=== PATIENT | female | born 2000 | race American Indian/Alaskan Native ===

== ENCOUNTER 2020-12-31 21:15 | Inpatient (IN) | payer OTHER ==
[2020-12-31] MEDS ORDERED: AMPICILLIN/NS 2 GM/100 ML 2 GM/100 ML BAG IV ONE ×2 (22:20→22:26)
[2020-12-31] MEDS ORDERED: LACTATED RINGERS 1,000 ML ONE (22:20)
[2020-12-31] MEDS ORDERED: CARBOPROST TROMETHAMINE 250 MCG/1 ML INJ IM PRN (22:26)
[2020-12-31] MEDS ORDERED: METHYLERGONOVINE MALEATE 0.2 MG/ML VIAL IM PRN (22:26)
[2020-12-31] MEDS ORDERED: BUTORPHANOL 2 MG/1 ML INJ IV PRN (22:26)
[2020-12-31] MEDS ORDERED: TERBUTALINE 1 MG/1 ML INJ SUB-Q PRN (22:26)
[2020-12-31] MEDS ORDERED: LOPERAMIDE 2 MG CAP PO PRN (22:26)
[2020-12-31] MEDS ORDERED: miSOPROStol 200 MCG TAB PR PRN (22:26)
[2020-12-31] MEDS ORDERED: ePHEDrine SULFATE 50 MG/1 ML INJ IV PRN (22:26)
[2020-12-31] MEDS ORDERED: fentaNYL 100 MCG/2 ML INJ IV PRN (22:26)
[2020-12-31] MEDS ORDERED: LIDOCAINE (2%) 20 MG/1 ML VIAL 20 ML MDV INFILTRATI ONE (22:26)
[2020-12-31] MEDS ORDERED: OXYTOCIN 10 UNIT/1 ML INJ IM PRN (22:26)
[2020-12-31] MEDS ORDERED: ONDANSETRON 4 MG/2 ML INJ IV PRN ×2 (22:26→23:31)
[2020-12-31] MEDS ORDERED: MINERAL OIL 30 ML ORAL LIQD PO PRN (22:26)
[2020-12-31] MEDS ORDERED: ACETAMINOPHEN 325 MG TAB PO PRN (22:26)
[2020-12-31] MEDS ORDERED: LACTATED RINGERS 1,000 ML IV SCH (22:30)
--- NOTE | 2020-12-31 22:34 | History and Physical Report ---
History of Present Illness Date of examination: 12/31/20 Date of admission: 12/31/2020 Chief complaint: Contractions and leaking of water History of present illness: 20 year old presents to L&D with complaint of contractions and leaking of water. Patient states she has been kevin at home for 3 days. States she started leaking water at 5:00 PM today. States she has not had any care during the . States she was trying to have a home at home and says she has been pushing at home for several hours. Patient states her EDC is based on an early US she had done at the aid center; EDC 12/28/20. Denies any complications during the except for no care. Past History Past Medical History: asthma, other (obesity) Past Surgical History: other (surgery on left leg as a baby (states her father broke her leg)) [employer] History: denies: chlamydia, gonorrhea, hepatitis B, hepatitis C, herpes, HIV, syphilis, trichomonas Family/Genetic History: diabetes Social history: single, lives with family, full code. denies: smoking, alcohol abuse, prescription drug abuse, IV drug use - Obstetrical History Expected Date of Delivery: 12/28/20 Actual Gestation: 40 Week(s) 3 Day(s) : 1 Para: 0 Hx # Term Pregnancies: 0 Number of Pregnancies: 0 Spontaneous Abortions: 0 Induced : 0 Number of Living Children: 0 Medications and Allergies Allergies Allergy/AdvReac Type Severity Reaction Status Date / Time peanut Allergy Anaphylaxis Verified 12/31/20 22:09 Home Medications Medication Instructions Recorded Confirmed Last Taken Type No Known Home Medications [No 12/31/20 12/31/20 Unknown History Reported Home Medications] Active Meds: Active Medications Acetaminophen (Acetaminophen 325 Mg Tab) 650 mg PO Q4H PRN PRN Reason: Pain, Mild (1-3) Butorphanol Tartrate (Butorphanol 2 Mg/1 Ml Inj) 1 mg IV Q2H PRN PRN Reason: Pain, Moderate(4-6) LABOR PAIN Carboprost Tromethamine (Carboprost Tromethamine 250 Mcg/1 Ml Inj) 250 mcg IM ONCE PRN PRN Reason: Uterine Bleeding Ephedrine Sulfate (Ephedrine Sulfate 50 Mg/1 Ml Inj) 10 mg IV Q2M PRN PRN Reason: Hypotension Fentanyl (Fentanyl 100 Mcg/2 Ml Inj) 100 mcg IV Q2H PRN PRN Reason: Pain,Severe (7-10) LABOR PAIN Oxytocin/Sodium Chloride (Pitocin/Ns 30 Unit/500ml) 30 units in 500 mls @ 2 mls/hr IV TITR [facility]; Protocol Lactated Ringer's (Lactated Ringers) 1,000 mls @ 125 mls/hr IV DIRECT [facility] Oxytocin/Sodium Chloride (Pitocin/Ns 30 Unit/500ml) 30 units in 500 mls @ 40 mls/hr IV TITR [facility]; Protocol Ampicillin Sodium (Ampicillin/Ns 2 Gm/100 Ml) 2 gm in 100 mls @ 100 mls/hr IV ONCE ONE; Protocol Stop: 12/31/20 23:25 Ampicillin Sodium (Ampicillin/Ns 1 Gm/50 Ml) 1 gm in 50 mls @ 100 mls/hr IV Q4H [facility]; Protocol Lidocaine (Lidocaine (2%) 20 Mg/1 Ml Vial 20 Ml Mdv) 20 ml INFILTRATI ONCE ONE Stop: 12/31/20 22:27 Loperamide HCl (Loperamide 2 Mg Cap) 2 mg PO ONCE PRN PRN Reason: give with Hemabate Methylergonovine Maleate (Methylergonovine Maleate 0.2 Mg/Ml Vial) 0.2 mg IM ONCE PRN PRN Reason: Uterine Bleeding Mineral Oil (Mineral Oil 30 Ml Oral Liqd) 30 ml PO QHS PRN PRN Reason: Constipation Misoprostol (Misoprostol 200 Mcg Tab) 800 mcg NE ONCE PRN PRN Reason: Uterine Bleeding Ondansetron HCl (Ondansetron 4 Mg/2 Ml Inj) 4 mg IV Q8H PRN PRN Reason: Nausea And Vomiting Oxytocin (Oxytocin 10 Unit/1 Ml Inj) 10 unit IM ONCE PRN PRN Reason: Uterine Bleeding Terbutaline Sulfate (Terbutaline 1 Mg/1 Ml Inj) 0.25 mg SUB-Q ONCE PRN PRN Reason: Hyperstimulation/Hypertonicity Review of Systems All systems: negative (contractions and leaking of water) - Physical Exam Abdomen: Positive: normal appearance, soft. Negative: distention, tenderness, guarding, rigidity Genitourinary (Female): Positive: normal external genitalia, normal perenium. Negative: perineal/vulvar lesions Vagina: Positive: normal moisture Uterus: Positive: enlarged. Negative: tender Anus/Rectum: Positive: normal perianal skin - Obstetrical FHR: category 2 Uterine Contraction Monitor Mode: External Cervical Dilatation: 8 Cervical Effacement Percentage: 80 station: -2 Uterine Contraction Pattern: Regular Uterine Contraction Intensity: Moderate Results All other labs normal. Assessment and Plan A: at 40 weeks, 3 days gestation. Active labor. GBS unknown. No care. P: Admit. EFM. GBS prophylaxis. Anticipate vaginal . Draw labs. US.
[2020-12-31] MEDS ORDERED: OXYTOCIN DRIP 30 UNITS/500 ML BAG IV SCH ×2 (23:00)
[2020-12-31] MEDS ORDERED: BENZOCAINE/MENTHOL 20/0.5% TOP SPRAY 56 GM TP PRN (23:31)
[2020-12-31] MEDS ORDERED: MAGNESIUM HYDROXIDE (MOM) ORAL LIQD UDC PO PRN (23:31)
[2020-12-31] MEDS ORDERED: LANOLIN/ZINC/DIMETHICONE (LANSINOH) 7 GM TP PRN ×2 (23:31)
[2020-12-31] MEDS ORDERED: WITCH HAZEL/ GLYCERIN PAD TP PRN (23:31)
[2020-12-31 23:39] LABS: Hematocrit 36.2 % (30.3-42.9); Hemoglobin 11.7 gm/dl (10.1-14.3); Mean Corpuscular HGB Conc 32 % (30-34); Mean Corpuscular Volume 78 fl (79-97); Platelet Count 307 K/mm3 (140-440); Red Blood Count 4.64 M/mm3 (3.65-5.03); Red Cell Distribution Width 17.6 % (13.2-15.2)
--- NOTE | 2020-12-31 23:41 | Procedure Note ---
OB Delivery Note - Delivery Date of Delivery: 12/31/20 Surgeon: SHAI FARRELL Estimated blood loss: other (250 cc) - Vaginal Delivery presentation: vertex Delivery position: OA Intrapartum events: no care Delivery induction: none Delivery monitor: external FHT, external uterine Route of delivery: Delivery placenta: spontaneous Delivery cord: 3 umbilical vessels Episiotomy: none Delivery laceration: 1st degree Delivery comments: Spontaneous vaginal delivery at 23:07 of liveborn male infant weighing 6 lb. 9 oz. over intact perineum with apgars of 8/9. No nuchal cord. was atraumatic. Baby placed skin to skin with mom immediately after . Baby bulb suctioned and dried. Spontaneous cry and respirations. 3 vessel cord double clamped and cut and baby taken to radiant warmer for further suctioning. Cord blood obtained. Spontaneous delivery of intact placenta and membranes at 23:13. EBL 250 cc. Pitocin to IV fluids after delivery of placenta. Fundus firm and midline at 2 FB below umbilicus. Vaginal sweep negative. Superficial first degree left periurethral laceration, not bleeding and not repaired per patient request. No other lacerations noted. Sponge count correct. Mother and baby stable in birthing room.
[2021-01-01 00:03] LABS: Alanine Aminotransferase 14 units/L (7-56); Albumin 3.3 g/dL (3.9-5); Blood Urea Nitrogen 5 mg/dL (7-17); Calcium 8.8 mg/dL (8.4-10.2); Hemolysis Index 1
[2021-01-01 00:04] LABS: BUN/Creatinine Ratio 7
[2021-01-01 00:18] LABS: Hepatitis C Virus Antibody Non-Reactive (NonReactive)
[2021-01-01] MEDS: HYDROcodone/ACETAMINOPHEN 5-325 MG TAB PO PRN ×2 (00:49→11:25)
[2021-01-01 01:12] LABS: Uric Acid 7.1 mg/dL (3.5-7.6)
[2021-01-01] MEDS ORDERED: miSOPROStol 200 MCG TAB VG ONE (02:05)
[2021-01-01] MEDS ORDERED: METHYLERGONOVINE MALEATE 0.2 MG/ML VIAL IM ONE ×2 (02:33→15:34)
[2021-01-01] MEDS ORDERED: SILVER NITRATE APPLICATOR 1 EA TP ONE ×3 (02:51→10:00)
[2021-01-01] MEDS ORDERED: AMPICILLIN/NS 1 GM/50 ML 1 GM/50 ML BAG IV SCH (03:00)
--- NOTE | 2021-01-01 03:20 | Event Note ---
Date: 01/01/21 Uterus became boggy once patient went upstairs to Mother Baby unit. Bladder was full and fundus deviated to right of umbilicus; patient voided more than 400 cc and fundus returned to midline at 1 FB below umbilicus. Fundal massage, rectal cytotec, and IM Methergine given. US ordered to check for accessory lobe. PO Methergine series ordered. At delivery patient had refused suturing of small periurethral laceration. Small amount of bleeding now coming from laceration; silver nitrate applied for hemostasis and ice pack applied.
--- NOTE | 2021-01-01 03:51 | Ultrasound Report ---
ULTRASOUND PELVIS INDICATION: Check for accessory lobe of placenta. TECHNIQUE: Transabdominal. Duplex Color Doppler used: Yes. COMPARISON: None available FINDINGS: Uterus: Present. Endometrial complex: Thickened measuring 3.2 cm. The stripe is heterogeneous but demonstrates no disc rete nodule and demonstrate no increased flow. The uterus is mildly heterogeneous as well. Mass lesions: None. Additional findings: None. Right Ovary --nonvisualized. Left Ovary--nonvisualized. Urinary Bladder: Normal. Free Fluid: None. Additional Findings: None. IMPRESSION: 1. Thickened, heterogeneous endometrial stripe. 2. Ovaries nonvisualized. No adnexal abnormality. Signer Name: Bret Mei MD Signed: 01/01/2021 3:47 AM Workstation Name: [id number]
[2021-01-01 05:50] LABS: Bacteria,Urine 4+ /HPF (Negative); Bilirubin,Urine NEG (Negative); Blood,Urine MOD (Negative); Color,Urine Red (Yellow); Mucus,Urine FEW /HPF; RBC,Urine > 182.0 /HPF (0.0-6.0); Urobilinogen,Urine < 2.0 mg/dL (<2.0)
[2021-01-01] MEDS ORDERED: MINERAL OIL 30 ML ORAL LIQD PO PRN (06:40)
[2021-01-01] MEDS ORDERED: OXYTOCIN DRIP 30 UNITS/500 ML BAG IV SCH (06:42)
[2021-01-01] MEDS ORDERED: cefTRIAXone/NS 1 GM/50 ML 1 GM/50 ML BAG IV SCH (07:00)
[2021-01-01] MEDS ORDERED: miSOPROStol 200 MCG TAB PO ONE (08:37)
[2021-01-01] MEDS ORDERED: METHYLERGONOVINE MALEATE 0.2 MG/ML VIAL IM NR (08:39)
[2021-01-01] MEDS ORDERED: FERROUS SULFATE 325 MG TAB PO SCH (10:00)
[2021-01-01 10:04] LABS: Hematocrit 29.8 % (30.3-42.9); Hemoglobin 9.6 gm/dl (10.1-14.3)
--- NOTE | 2021-01-01 10:19 | Event Note ---
Date: 01/01/21 Nurse states patient's uterus keeps getting boggy and has changed several pads soaked with blood and clots in the past 2 hours. Nurse has called Dr. Contreras and has given patient another dose of IM Methergine and has given PO cytotec. Speculum exam performed; no vaginal or cervical lacerations noted. Large amount of blood seen on pad. Patient lost between 200-250 cc of blood at delivery and has probably lost another 500 cc since then. Stat H&H pending. IM Pitocin ordered. Ampicillin and gentamicin ordered. Schuler ordered. Informed Dr. Patricia gray of all of the above. Care of patient turned over to Amy MAHAN and Dr. Contreras.
[2021-01-01] MEDS ORDERED: LOPERAMIDE 2 MG CAP PO SCH (10:30)
[2021-01-01] MEDS ORDERED: OXYTOCIN 10 UNIT/1 ML INJ IM SCH (10:30)
--- NOTE | 2021-01-01 11:01 | Progress Note ---
Assessment and Plan A: S/P Delayed PPH Asymptomatic anemia UTI P: Continue routine pp care Fe prescribed Urine cul Cont abt D/C home tomm if stable Consulted with Dr Contreras Subjective - Subjective Date of service: 01/01/21 Principal diagnosis: s/p Patient reports: appetite normal, voiding normally, pain well controlled, ambulating normally [place]: doing well, bottle feeding Objective - Vital Signs Latest vital signs: Vital Signs Temp Pulse Resp BP BP Pulse Ox 01/01/21 08:26 99.3 F 88 20 121/55 98 01/01/21 05:43 98.4 F 67 18 116/67 98 01/01/21 01:25 98.4 F 69 18 113/53 99 01/01/21 00:15 102 H 120/64 99 01/01/21 00:10 92 H 120/64 99 01/01/21 00:05 75 98 01/01/21 00:00 93 H 123/58 98 12/31/20 23:55 88 18 122/65 99 12/31/20 23:52 93 H 123/56 12/31/20 23:50 91 H 98 12/31/20 23:45 98 H 98 12/31/20 23:40 93 H 18 123/56 98 12/31/20 23:35 100 H 99 12/31/20 23:32 93 H 141/66 12/31/20 23:30 106 H 169/93 95 12/31/20 23:25 93 H 22 141/66 95 12/31/20 23:20 103 H 100 12/31/20 23:15 105 H 120/57 99 12/31/20 23:10 98.6 F 107 H 18 120/57 99 12/31/20 23:05 116 H 99 12/31/20 23:00 97 H 99 12/31/20 22:55 75 100 12/31/20 22:51 77 146/65 12/31/20 22:50 81 97 12/31/20 22:45 90 97 12/31/20 22:44 78 93 12/31/20 22:40 86 98 12/31/20 22:35 71 98 12/31/20 22:10 98.6 F 84 22 146/65 99 Intake and Output 12/31/20 01/01/21 01/01/21 22:59 06:59 14:59 Intake Total 120 Output Total 1000 Balance -1000 120 Intake: Oral 120 Output: Urine 1000 Void 1000 Other: Total, Intake Amount 120 Total, Output Amount 100 # Voids Void 1 1 Weight 210 lb Estimated Blood Loss 250 - Exam Breasts: Present: normal Abdomen: Present: normal appearance, soft, normal bowel sounds Vulva: both: normal Uterus: Present: normal, firm, fundal height below umbilicus Extremities: Present: normal Incision: Present: normal, intact - Labs Labs: Abnormal lab results 12/31/20 12/31/20 01/01/21 Range/Units 22:05 22:05 09:40 WBC 12.8 H (4.5-11.0) K/mm3 Hgb 9.6 L (10.1-14.3) gm/dl Hct 29.8 L D (30.3-42.9) % MCV 78 L (79-97) fl MCH 25 L (28-32) pg RDW 17.6 H (13.2-15.2) % Potassium 3.0 L (3.6-5.0) mmol/L Carbon Dioxide 14 L (22-30) mmol/L BUN 5 L (7-17) mg/dL Alkaline Phosphatase 178 H (35-129) units/L Lactate Dehydrogenase 247 H (91-180) units/L Albumin 3.3 L (3.9-5) g/dL Urine WBC (Auto) (0.0-6.0) /HPF 01/01/21 Range/Units Unknown WBC (4.5-11.0) K/mm3 Hgb (10.1-14.3) gm/dl Hct (30.3-42.9) % MCV (79-97) fl MCH (28-32) pg RDW (13.2-15.2) % Potassium (3.6-5.0) mmol/L Carbon Dioxide (22-30) mmol/L BUN (7-17) mg/dL Alkaline Phosphatase (35-129) units/L Lactate Dehydrogenase (91-180) units/L Albumin (3.9-5) g/dL Urine WBC (Auto) 159.0 H (0.0-6.0) /HPF
[2021-01-01] MEDS: PRENATAL VIT27-FE FUMARATE-FOLIC ACID VIT TAB PO SCH (11:24)
[2021-01-01] MEDS ORDERED: GENTAMICIN 100 MG in SODIUM CHLORIDE 0.9% 100 ML IV SCH (12:00)
[2021-01-01] MEDS: METHYLERGONOVINE 0.2 MG TABLET PO SCH ×2 (12:47→19:33)
[2021-01-01 14:40] LABS: Hematocrit 28.3 % (30.3-42.9)
[2021-01-01] MEDS ORDERED: CARBOPROST TROMETHAMINE 250 MCG/1 ML INJ IM ONE (15:34)
--- NOTE | 2021-01-01 15:41 | Event Note ---
Date: 01/01/21 This is a COVID POSITIVE PATIENT: I was called to the room for persistent delayed PP hemorrhage. Patient has since delivery and total EBL 1000ml. since delivery. she admits to laboring at home for over two days before she presented to the hospital. at 23:07 12/31/20: EBL @ delivery noted to be 250ml. Serial H/H as follows: 12/31/20: @ 22:05: 11/7/36.2 01/01/21:@ 09:40: 9.6/29.8 01/01/21: @ 13:46: 9.0/28.3 Medical intervention to date has included the following: Cytotec: Per Vagina:800mcg @ 02:37 Per Mouth(buccal): 200mcg @ 10:22 Oxytocin: Per IV: 50 units in 500ml running at 40ml/min Methergine: 0.2mg given IM @ 02:38 and 15:34 0.2mg given PO @ 11:00 plan for PO cytotec 0.2mg PO TIDx3 days(she has received the first dose of this series) VITALS:BP 127/56, P121 Temp 98.4 She is AAox3 at bedside. Vitals: Patient is warm to touch. Perineum: ~200ml on jessica-dad, no active bleeding Fundus firm Bimanual reveals atonic lower uterine segment and cervix firm fundus no blood or clot expressed with bimanual massage minimal blood noted from left jessica-urethral laceration. Plan: I suspect lower uterine segment atony. The fundus is firm with no active bleeding or clots at bedside. The goal is for resolution of the lower segment atony. At this time would continue with medical management.I have ordered Methergine 0.2mg IM and Hemabate to be given stat. She on on Abx for suspected underlying endometritis. I have ordered her to receive a send IV line immediately(her second line blew earlier) I have ordered her to receive two units of PRBCs stat. The next step if this patient does not respond would be EUA and D&C in the OR with vaginal packing under sedation. With no active hemorrhage I feel it reasonable to continue with medical management at this time. Keysha Contreras MD
[2021-01-01 15:52] LABS: Amphetamine Screen,Urine Negative; Benzodiazepines Screen,Urine Negative; Cannabinoid Screen,Urine Negative; Cocaine Screen,Urine Negative; Methadone Screen,Urine Negative; Opiate Screen,Urine Negative
[2021-01-01] MEDS ORDERED: AMMONIA INHALANT IH ONE (18:20)
[2021-01-01] MEDS ORDERED: SODIUM CHLORIDE 0.9% 500 ML 500 ML IV NR (20:04)
[2021-01-01] MEDS ORDERED: LOPERAMIDE 2 MG CAP PO ONE (21:16)
[2021-01-01] MEDS ORDERED: ACETAMINOPHEN 325 MG TAB PO ONE (22:08)
[2021-01-01] MEDS ORDERED: diphenhydrAMINE 25 MG CAP PO ONE (22:09)
[2021-01-01] MEDS: IBUPROFEN 600 MG TAB PO SCH (22:24)
[2021-01-01] MEDS: FERROUS SULFATE 325 MG TAB PO SCH (22:25)
[2021-01-01] MEDS: AMPICILLIN/NS 2 GM/100 ML 2 GM/100 ML BAG IV SCH (23:39)
[2021-01-02] MEDS: GENTAMICIN/NS 100 MG/100 ML 100 MG/100 ML BAG IV SCH ×3 (00:52→20:06)
[2021-01-02] MEDS: METHYLERGONOVINE 0.2 MG TABLET PO SCH ×3 (03:35→20:04)
[2021-01-02] MEDS: IBUPROFEN 600 MG TAB PO SCH ×4 (06:02→23:50)
[2021-01-02] MEDS: AMPICILLIN/NS 2 GM/100 ML 2 GM/100 ML BAG IV SCH ×4 (06:03→23:49)
[2021-01-02 09:05] LABS: Hematocrit 28.6 % (30.3-42.9); Hemoglobin 9.1 gm/dl (10.1-14.3)
--- NOTE | 2021-01-02 10:02 | Progress Note ---
Assessment and Plan PPD # 2 Home delivery A: S/P S/P delayed PPH with lower uterine seg atony Endometritis UTI Asymptomatic anemia Covid pos No care P: Continue routine pp care Repeat H&H in 12 hrs D/C brewer Continue ABT D/C home within 24-48 hrs if cleared by MD Dr Contreras consulted Subjective - Subjective Date of service: 01/02/21 Principal diagnosis: s/p Patient reports: appetite normal, voiding normally, pain well controlled, flatus, other (rubra lochia wnl ) : doing well, bottle feeding (Adq amts cl yell urine in BSD bag) Objective - Vital Signs Latest vital signs: Vital Signs Temp Pulse Resp BP BP Pulse Ox Pulse Ox 01/02/21 08:30 98.7 F 96 H 20 108/53 100 01/02/21 08:00 100 01/02/21 03:10 98.1 F 86 18 113/56 98 01/02/21 02:40 98.0 F 78 18 96/51 97 01/02/21 02:10 98.1 F 99 H 18 106/74 98 01/02/21 01:40 98.1 F 88 18 115/52 97 01/02/21 01:25 98.2 F 100 H 18 108/56 99 01/02/21 00:55 98.2 F 100 H 18 115/57 98 01/02/21 00:25 98.4 F 105 H 20 108/58 98 01/01/21 23:55 98.6 F 105 H 20 109/57 109/57 98 01/01/21 23:25 98.4 F 102 H 18 99/65 98 01/01/21 23:10 98.4 F 99 H 18 103/61 01/01/21 22:20 99.2 F 120 H 20 102/53 96 Intake and Output 01/01/21 01/02/21 01/02/21 22:59 06:59 14:59 Intake Total 20 100 Output Total 600 Balance 20 -500 Intake: IV 20 100 AMPICILLIN/NS 2 GM/100 ML 100 2 gm In 100 ml @ 100 mls /hr IV Q6H [facility] Rx#: [id number] Right Forearm 20 Blood Product 0 Leukoreduced Red Blood 0 Cells Unit [id number] Leukoreduced Red Blood 0 Cells Unit [id number] Output: Urine 600 Indwelling Catheter 600 Other: Total, Output Amount 600 - Exam Breasts: Present: normal Abdomen: Present: normal appearance, soft, normal bowel sounds Vulva: both: normal Uterus: Present: normal, firm, fundal height below umbilicus Extremities: Present: normal - Labs Labs: Abnormal lab results 01/01/21 01/01/21 01/01/21 Range/Units 09:40 09:40 13:46 Hgb 9.6 L 9.0 L (10.1-14.3) gm/dl Hct 29.8 L D 28.3 L (30.3-42.9) % Coronavirus (PCR) (Negative) Crossmatch See Detail 01/01/21 01/02/21 Range/Units Unknown 08:21 Hgb 9.1 L (10.1-14.3) gm/dl Hct 28.6 L (30.3-42.9) % Coronavirus (PCR) Positive A (Negative) Crossmatch
[2021-01-02] MEDS: FAMOTIDINE 20 MG/2 ML INJ IV SCH (11:13)
[2021-01-02] MEDS: PRENATAL VIT27-FE FUMARATE-FOLIC ACID VIT TAB PO SCH (11:15)
[2021-01-02] MEDS: FERROUS SULFATE 325 MG TAB PO SCH ×2 (11:15→23:49)
[2021-01-02] MEDS ORDERED: SODIUM CHLORIDE 0.9% 500 ML 500 ML ONE (22:47)
[2021-01-03 01:14] LABS: Hematocrit 26.8 % (30.3-42.9); Hemoglobin 8.9 gm/dl (10.1-14.3)
[2021-01-03] MEDS: GENTAMICIN/NS 100 MG/100 ML 100 MG/100 ML BAG IV SCH (04:19)
[2021-01-03] MEDS: METHYLERGONOVINE 0.2 MG TABLET PO SCH (04:20)
[2021-01-03] MEDS: IBUPROFEN 600 MG TAB PO SCH ×2 (06:16→12:00)
[2021-01-03] MEDS: AMPICILLIN/NS 2 GM/100 ML 2 GM/100 ML BAG IV SCH (06:17)
[2021-01-03] MEDS: FAMOTIDINE 20 MG/2 ML INJ IV SCH (08:15)
[2021-01-03] MEDS: FERROUS SULFATE 325 MG TAB PO SCH (08:16)
[2021-01-03] MEDS: PRENATAL VIT27-FE FUMARATE-FOLIC ACID VIT TAB PO SCH (08:16)
[2021-01-03] MEDS ORDERED: SODIUM CHLORIDE 0.9% 1000 ML 1,000 ML ONE (08:35)
[2021-01-03 09:57] VITALS: BP 116/58
--- NOTE | 2021-01-03 10:29 | Progress Note ---
Assessment and Plan A: S/P with delayed PPH p: D/C home per Dr Contreras Subjective - Subjective Date of service: 01/03/21 Principal diagnosis: s/p Patient reports: appetite normal, voiding normally, pain well controlled, flatus, ambulating normally : doing well, bottle feeding Objective - Vital Signs Latest vital signs: Vital Signs Temp Pulse Resp BP BP Pulse Ox Pulse Ox 01/03/21 08:00 97.7 F 84 20 116/58 100 100 01/03/21 04:42 98.0 F 92 H 20 116/69 97 01/02/21 20:05 98.1 F 97 H 20 107/49 99 100 01/02/21 17:28 20 01/02/21 17:20 98.3 F 87 20 102/58 97 Intake and Output 01/02/21 01/03/21 01/03/21 22:59 06:59 14:59 Intake Total 200 100 Balance 200 100 Intake: IV 200 100 AMPICILLIN/NS 2 GM/100 ML 100 100 2 gm In 100 ml @ 100 mls /hr IV Q6H [facility] Rx#: [id number] GENTAMICIN/NS 100 MG/100 100 ML 100 mg In 100 ml @ 100 mls/hr IV Q8H [facility] Rx#: [id number] Other: # Voids Void 1 - Exam Breasts: Present: normal Abdomen: Present: normal appearance, soft, normal bowel sounds Vulva: both: normal Uterus: Present: normal, firm, fundal height below umbilicus Extremities: Present: normal Incision: Present: normal, intact - Labs Labs: Abnormal lab results 01/01/21 01/03/21 Range/Units 09:40 00:20 Hgb 8.9 L (10.1-14.3) gm/dl Hct 26.8 L (30.3-42.9) % Crossmatch See Detail
--- NOTE | 2021-01-03 10:35 | Discharge Summary ---
Providers - Providers Date of Admission: 12/31/20 22:26 Date of discharge: 01/03/21 Attending physician: LYUBOV GREEN MD 12/31/20 23:33 Consult to Case Management [CONS] Routine Services Needed at Discharge: Supervisor Assembly Room Notified:: no Additional Physician Instructions: No care Primary care physician: [facility] Hospitalization Reason for admission: IUP at term Delivery: Episiotomy: none Laceration: none Other procedures: other (Received PRBCs and abt r/t delayed PPH, UTI, and endometritis) complications: pelvic infection, transfusion, UTI, uterine atony (delayed PPH), other Discharge diagnosis: IUP at term delivered baby: male Hospital course: Pt voiced an attempted home delivery. She arrived to [facility] in active labor and had a . Afterwards she suffered from delayed PPH, uti, and endometritis which was resolved with Methergine, Pitocin, Cytotec, PRBCs, abt and pelvic rest. See H&P, delivery summary, and pp notes. Condition at discharge: Stable Disposition: 01 HOME / SELF CARE / HOMELESS Plan - Discharge Medications Prescriptions: Ferrous Sulfate [Feosol 325 MG tab] 325 mg PO BID #120 tablet Ibuprofen [Motrin 600 MG tab] 600 mg PO Q6HR PRN #30 tablet PRN Reason: Menstrual Cramps - Provider Discharge Summary Activity: routine, no sex for 6 weeks, no heavy lifting 4 weeks, no strenuous exercise Diet: routine Instructions: routine Additional instructions: [] Smoking cessation referral if applicable(refer to patient education folder for contact #) [] Refer to [facility] Booklet Call your doctor immediately for: * Fever > 100.5 * Heavy vaginal bleeding ( >1 pad per hour) * Severe persistent headache * Shortness of breath * Reddened, hot, painful area to leg or breast * Drainage or odor from incision. * Keep incision clean and dry at all times and follow doctor's instructions regarding bathing/showering - Follow up plan Follow up: PRIMARY CARE, [Primary Care Provider] - 6 Weeks Forms: [facility] Discharge Summary, Discharge Signature Page
== END 2021-01-03 15:00 | disposition home or self-care (01) | DRG 805 ==
LOC: TRG 21:15 → APU 21:17 → LD 22:26 → TRG 22:26 → OB 01-01 01:20
PROVIDERS: ADMIT Obstetrics & Gynecology; ATTEND Obstetrics & Gynecology
PROC: 10E0XZZ Delivery of Products of Conception, External Approach (ICD-10-PCS; principal; 2020-12-31)
PROC: 30233N1 Transfusion of Nonautologous Red Blood Cells into Peripheral Vein, Percutaneous Approach (ICD-10-PCS; 2021-01-01)
DX: O99.214 Obesity complicating childbirth (principal); U07.1 COVID-19; Z37.0 Single live birth; O98.53 Other viral diseases complicating the puerperium; O99.52 Diseases of the respiratory system complicating childbirth; Z3A.40 40 weeks gestation of pregnancy; J45.909 Unspecified asthma, uncomplicated; Z91.010 Allergy to peanuts; O71.82 Other specified trauma to perineum and vulva; O72.2 Delayed and secondary postpartum hemorrhage; O90.81 Anemia of the puerperium; D64.9 Anemia, unspecified; O86.20 Urinary tract infection following delivery, unspecified; O86.12 Endometritis following delivery
CPT/HCPCS: 36415; 59025; 76857; 80053; 80307; 81001; 82962; 83036; 83615; 84550; 85014; 85018; 85027; 86592; 86706; 86762; 86803; 86850; 86900; 86901; 86920; 87086; 87806; 96360; G0378; A6250; J0290; J1580; J2210; J2590; J7120; P9016; U0003